=== PATIENT | female | born 1960 | race Caucasian/White ===

== ENCOUNTER 2017-02-02 18:08 | Emergency (ER) | payer OTHER ==
[2017-02-02 18:28] VITALS: BP 137/86
[2017-02-02] MEDS ORDERED: Sodium Chloride 0.9% 1,000 ML IV ONE (18:49)
[2017-02-02] MEDS ORDERED: HYDROmorphone 1 MG/ML Syringe IVPUSH ONE (18:49)
[2017-02-02] MEDS ORDERED: Sodium Chloride 0.9% 10 ML Syringe FLUSH PRN (18:49)
--- NOTE | 2017-02-02 19:08 | EDM.PDOC ---
ED HPI GENERAL MEDICAL PROBLEM - General Chief Complaint: Genitourinary Problem Stated Complaint: BLOOD IN URINE,BACK PAIN Time Seen by Provider: 02/02/17 18:46 Source of Information: Reports: Patient History Limitations: Reports: No Limitations - History of Present Illness INITIAL COMMENTS - FREE TEXT/NARRATIVE: 56-year-old female presents for evaluation and treatment of left-sided flank pain. Patient reports that she developed gross hematuria yesterday morning. She states that this morning she developed severe pain. This severe pain started in her left groin and radiated to her left flank and left back. She initially thought she had a urinary tract infection. She presented to the [place] [facility]. She states that she had a UA done which showed no infection but showed red blood cells in her urine. She was told she either had a kidney stone or bladder cancer. She was instructed to take ibuprofen and pyridium. She did not have any imaging. Patient reports that she has been taking ibuprofen but is not getting any symptom relief. Current symptoms include left-sided groin and flank pain, increased urinary urgency, increased urinary frequency, dysuria and hematuria. She denies any fevers, chills, nausea or vomiting. Patient denies any history of kidney stones. Left Flank Pain Score (Numeric/FACES): 8 - Related Data Allergies Allergy/AdvReac Type Severity Reaction Status Date / Time Sulfa (Sulfonamide Allergy Hives Verified 02/02/17 18:28 Antibiotics) Home Meds: Home Meds Multivitamin W/Iron, Minerals [Compete] 1 each PO DAILY 02/02/17 [History] Nitrofurantoin Monohyd/M-Cryst [Macrobid 100 mg Capsule] 100 mg PO BID #14 capsule 02/02/17 [Rx] Omeprazole 20 mg PO BIDAC 02/02/17 [History] Propranolol [Inderal LA] 80 mg PO DAILY 02/02/17 [History] Ramipril [Altace] 5 mg PO DAILY 02/02/17 [History] Simvastatin [Zocor] 10 mg PO BEDTIME 02/02/17 [History] Tamsulosin [Flomax] 0.4 mg PO PCBREAKFAST #14 cap.er 02/02/17 [Rx] Venlafaxine [Effexor XR 24 Hr] 75 mg PO DAILY 02/02/17 [History] Venlafaxine [Effexor XR] 150 mg PO BEDTIME 02/02/17 [History] Zolpidem [Ambien] 10 mg PO BEDTIME PRN 02/02/17 [History] metFORMIN [Glucophage] 500 mg PO BEDTIME 02/02/17 [History] predniSONE [Prednisone] 5 mg PO DAILY 02/02/17 [History] Past Medical History Cardiovascular History: Reports: High Cholesterol, Hypertension Gastrointestinal History: Reports: GERD Endocrine/Metabolic History: Reports: Diabetes, Type II - Past Surgical History HEENT Surgical History: Reports: Tonsillectomy GI Surgical History: Reports: Cholecystectomy Female Surgical History: Reports: Section Musculoskeletal Surgical History: Reports: Shoulder Surgery, Other (See Below) Other Musculoskeletal Surgeries/Procedures:: hand surgery Dermatological Surgical History: Reports: Plastic Surgical Reconstruction/Repair Social & Family History - Tobacco Use Smoking Status *Q: Current Every Day Smoker Years of Tobacco use: 40 Packs/Tins Daily: 1 - Caffeine Use Caffeine Use: Reports: Coffee - Recreational Drug Use Recreational Drug Use: No ED ROS GENERAL - Review of Systems Review Of Systems: See Below Constitutional: Denies: Fever, Chills GI/Abdominal: Reports: Abdominal Pain (left groin into left lower abdomen and flank). Denies: Nausea, Vomiting : Reports: Dysuria, Flank Pain (left), Frequency, Hematuria, Urgency ED EXAM, RENAL/ - Physical Exam Exam: See Below Exam Limited By: No Limitations General Appearance: Alert, WD/WN, No Apparent Distress Respiratory/Chest: No Respiratory Distress, Lungs Clear, Normal Breath Sounds Cardiovascular: Normal Peripheral Pulses, Regular Rate, Rhythm, No Murmur GI/Abdominal: Normal Bowel Sounds, Soft, Tender (left lower and upper abdomen) Back Exam: CVA Tenderness (L) Neurological: Alert, Oriented, Normal Cognition Psychiatric: Normal Affect, Normal Mood Skin Exam: Warm, Dry, Normal Color Course - Vital Signs Last Recorded V/S: Last Vital Signs Temp 37.0 C 02/02/17 18:24 Pulse 89 02/02/17 18:24 Resp 16 02/02/17 18:24 BP 137/86 02/02/17 18:24 Pulse Ox 100 02/02/17 18:24 - Orders/Labs/Meds Orders: Active Orders 24 hr Category Date Time Status Peripheral IV Care [RC] . DIRECTED Care 02/02/17 18:49 Active CULTURE URINE [RM] Stat Lab 02/02/17 19:39 Received Peripheral IV Insertion Adult [OM.PC] Routine Oth 02/02/17 18:48 Ordered Labs: Laboratory Tests 02/02/17 02/02/17 02/02/17 Range/Units 19:10 19:10 19:24 WBC 9.59 (3.98-10.04) K/mm3 RBC 4.78 (3.98-5.22) M/mm3 Hgb 14.3 (11.2-15.7) gm/L Hct 42.2 (34.1-44.9) % MCV 88.3 (79.4-94.8) fl MCH 29.9 (25.6-32.2) pg MCHC 33.9 (32.2-35.5) g/dl RDW Std Deviation 45.9 (36.4-46.3) fL Plt Count 158 L (182-369) K/mm3 MPV 12.7 H (9.4-12.3) fl Neut % (Auto) 62.9 (34.0-71.1) % Lymph % (Auto) 26.9 (19.3-51.7) % Bertie % (Auto) 8.2 (4.7-12.5) % Eos % (Auto) 1.5 (0.7-5.8) Baso % (Auto) 0.2 (0.1-1.2) % Neut # (Auto) 6.03 (1.56-6.13) K/mm3 Lymph # (Auto) 2.58 (1.18-3.74) K/mm3 Bertie # (Auto) 0.79 H (0.24-0.36) K/mm3 Eos # (Auto) 0.14 (0.04-0.36) K/mm3 Baso # (Auto) 0.02 (0.01-0.08) K/mm3 Sodium 141 (136-145) mEq/L Potassium 4.0 (3.5-5.1) mEq/L Chloride 106 (98-107) mEq/L Carbon Dioxide 24 (21-32) mEq/L Anion Gap 15.0 (5-15) BUN 18 (7-18) mg/dL Creatinine 1.3 H (0.55-1.02) mg/dL Est Cr Clr Drug Dosing 44.52 mL/min Estimated GFR (MDRD) 43 (>60) mL/min BUN/Creatinine Ratio 13.8 L (14-18) Glucose 106 (74-106) mg/dL Calcium 9.5 (8.5-10.1) mg/dL Total Bilirubin 0.5 (0.2-1.0) mg/dL AST 15 (15-37) U/L ALT 12 L (14-59) U/L Alkaline Phosphatase 114 (46-116) U/L Total Protein 8.0 (6.4-8.2) g/dl Albumin 3.9 (3.4-5.0) g/dl Globulin 4.1 gm/dL Albumin/Globulin Ratio 1.0 (1-2) Urine Color [place] H (Yellow) Urine Appearance Slt cloudy H (Clear) Urine pH 5.5 (5.0-8.0) Ur Specific [place] 1.015 (1.005-1.030) Urine Protein 1+ H (Negative) Urine Glucose (UA) Trace H (Negative) Urine Ketones Negative (Negative) Urine Occult Blood 2+ H (Negative) Urine Nitrite Positive H (Negative) Urine Bilirubin Negative (Negative) Urine Urobilinogen 2.0 H (0.2-1.0) Ur Leukocyte Esterase Negative (Negative) Urine RBC 5-10 H (0-5) /hpf Urine WBC 0-5 (0-5) /hpf Ur Epithelial Cells 0-5 (0-5) /hpf Urine Bacteria Few (FEW) /hpf Urine Mucus Few (FEW) /hpf Meds: Medications Discontinued Medications Generic Name Dose Route Start Last Admin Trade Name Vianey PRN Reason Stop Dose Admin Hydromorphone HCl 1 mg 02/02/17 18:49 02/02/17 19:20 Dilaudid IVPUSH 02/02/17 18:50 1 mg ONETIME ONE Administration Sodium Chloride 1,000 mls @ 999 mls/hr 02/02/17 18:49 02/02/17 19:32 Normal Saline IV 02/02/17 19:49 999 mls/hr ONETIME ONE Administration Ceftriaxone Sodium 2 gm/ 100 mls @ 200 mls/hr 02/02/17 20:06 02/02/17 20:16 Sodium Chloride IV 02/02/17 20:35 200 mls/hr ONETIME ONE Administration Sodium Chloride 10 ml 02/02/17 18:49 02/02/17 19:23 Saline Flush FLUSH 10 ml ASDIRECTED PRN Administration Keep Vein Open - Radiology Interpretation Free Text/Narrative:: CT of the abdomen and pelvis impression per Dr. Cole: 1. 4mm obstruting stone within the distal left ureter located approximately 2 cm proximal to the UPJ. CT Results Date: 02/02/17 - Re-Assessments/Exams Free Text/Narrative Re-Assessment/Exam: 02/02/17 20:01 UA returned with 1+ protein, trace glucose, 2+ blood and + nitrites. Negative leuks. Few bacteria see on microscopy. Urine sent for culture. I discussed the CT and the UA results with the patient. I will start some antibiotics here for her in the ER. She was warned that if her symptoms change or worsen she is to return to the ER immediately. 02/02/17 21:11 CBC has a normal WBC at 9.59, hgb is 14.3 and plts are 158 Sodium is 141, potassium is 4.0 and chloride is 106. Anion gap is 15.0. Creatinine is 1.3. Glucose is 106. Will discharge home with flomax, percocoet and macrobid. Discharge instructions as documented. Departure - Departure Time of Disposition: 21:11 Disposition: Home, Self-Care 01 Condition: fair Clinical Impression: UTI, Urinary tract infectious disease, Kidney stone - Discharge Information Prescriptions: Nitrofurantoin Monohyd/M-Cryst [Macrobid 100 mg Capsule] 100 mg PO BID #14 capsule Tamsulosin [Flomax] 0.4 mg PO PCBREAKFAST #14 cap.er Instructions: Kidney Stones, [id number], Urinary Tract Infection, Adult, Easy -to-Read Referrals: Gayle Mendoza MD [Primary Care Provider] - Forms: ED Department Discharge Additional Instructions: Rx for Percocet 1-2 tabs every 4-6 hours as needed for severe pain #20 given through instymeds take the macrobid bid x 7 days. You may start this medication tomorrow. Take flomax 1 tab PO daily. Take this medication in the morning. You may start this medication tomorrow. Follow-up with your PCP Sunday or Sunday this week for an ER follow-up and recheck. Make sure you're drinking plenty of fluids. Please return to the ER if your symptoms change or worsen. - My Orders Last 24 Hours: My Active Orders 02/02/17 18:48 Peripheral IV Insertion Adult [OM.PC] Routine 02/02/17 18:49 Peripheral IV Care [RC] . DIRECTED 02/02/17 19:39 CULTURE URINE [RM] Stat - Assessment/Plan Last 24 Hours: My Active Orders 02/02/17 18:48 Peripheral IV Insertion Adult [OM.PC] Routine 02/02/17 18:49 Peripheral IV Care [RC] . DIRECTED 02/02/17 19:39 CULTURE URINE [RM] Stat
--- NOTE | 2017-02-02 19:49 | CT ---
CT abdomen and pelvis Technique: Multiple axial sections were obtained from above the kidneys inferiorly through the pubic symphysis. Intravenous and oral contrast not utilized. Study has been performed as a ureteral stone protocol. Findings: Mild inflammatory change is noted around the left kidney. Left ureter is mildly prominent. Both these findings are caused by an obstructing stone within the distal left ureter measuring about 4 mm. Stone occurs approximately 2 cm proximal to the UPJ. No abnormal calcifications are seen within the left kidney. Minimal nonobstructing stone measuring about 1 mm seen within the right kidney. No right-sided ureteral calculi are seen. Visualized portions of the noncontrast liver and spleen appear within normal limits. Surgical clips are seen from prior cholecystectomy. Pancreas is within normal limits. Aorta shows atherosclerotic change without aneurysmal dilatation. Slight areas of ectasia are incidentally noted within the aorta. No retroperitoneal adenopathy or mesenteric abnormalities are seen. No pelvic mass or adenopathy is seen. No free fluid is seen. No bowel dilatation is seen. Appendix not visualized. Bone window settings were reviewed which shows vacuum disc phenomenon within the L4-L5 and L5-S1 discs. Unilateral spondylolytic defect is noted on the left side at L4-L5. Degenerative apophyseal change is seen from L3-L4 through L5-S1. Impression: 1. 4 mm obstructing stone within the distal left ureter located approximately 2 cm proximal to the UPJ. This obstructing stone causes mild inflammatory change around the left kidney as well as mildly prominent left ureter. 2. Other incidental findings as described above. Diagnostic code #3
[2017-02-02] MEDS ORDERED: cefTRIAXone 2 GM in Sodium Chloride 0.9% 100 ML IV ONE (20:06)
== END 2017-02-02 21:33 | disposition home or self-care (01) ==
LOC: JD.ED 18:08
DX: N20.2 Calculus of kidney with calculus of ureter (principal); N39.0 Urinary tract infection, site not specified; E78.00 Pure hypercholesterolemia, unspecified; I10 Essential (primary) hypertension; K21.9 Gastro-esophageal reflux disease without esophagitis; E11.9 Type 2 diabetes mellitus without complications; F17.210 Nicotine dependence, cigarettes, uncomplicated; Z90.49 Acquired absence of other specified parts of digestive tract; Z88.2 Allergy status to sulfonamides; Z79.899 Other long term (current) drug therapy; Z98.890 Other specified postprocedural states
CPT/HCPCS: 36415; 74176; 80053; 81001; 85025; 87086; 96361; 96365; 96375; 99284; J0696; J1170; J7030; J7040; J7050

== ENCOUNTER 2017-06-26 17:25 | Emergency (ER) | payer OTHER ==
[2017-06-26 18:02] VITALS: BP 162/137
[2017-06-26] MEDS ORDERED: Lidocaine 1% 10 ML MDV INJECT ONE (19:13)
--- NOTE | 2017-06-26 19:17 | EDM.PDOC ---
ED HPI GENERAL MEDICAL PROBLEM - General Chief Complaint: ENT Problem Stated Complaint: ABCESS INSIDE L CHEEK Time Seen by Provider: 06/26/17 18:43 Source of Information: Reports: Patient History Limitations: Reports: No Limitations - History of Present Illness INITIAL COMMENTS - FREE TEXT/NARRATIVE: Patient is a 56-year-old female who presents ED complaining of an abscess to the inner aspect of the left cheek. States noted a wound to her left inner cheek upon awaking up this past Sunday. She thought maybe just related to biting her cheek. Over the course of the weekend and the first part of this week abscess has increased in size with worsening pain. She has no history of MRSA. Wound is not draining. She has no fever, nausea vomiting, or any tooth pain. Left Upper Oral/Mouth Pain Score (Numeric/FACES): 7 - Related Data Allergies Allergy/AdvReac Type Severity Reaction Status Date / Time Sulfa (Sulfonamide Allergy Hives Verified 02/02/17 18:28 Antibiotics) Home Meds: Home Meds Multivitamin W/Iron, Minerals [Compete] 1 each PO DAILY 02/02/17 [History] Nitrofurantoin Monohyd/M-Cryst [Macrobid 100 mg Capsule] 100 mg PO BID #14 capsule 02/02/17 [Rx] Omeprazole 20 mg PO BIDAC 02/02/17 [History] Propranolol [Inderal LA] 80 mg PO DAILY 02/02/17 [History] Ramipril [Altace] 5 mg PO DAILY 02/02/17 [History] Simvastatin [Zocor] 10 mg PO BEDTIME 02/02/17 [History] Tamsulosin [Flomax] 0.4 mg PO PCBREAKFAST #14 cap.er 02/02/17 [Rx] Venlafaxine [Effexor XR 24 Hr] 75 mg PO DAILY 02/02/17 [History] Venlafaxine [Effexor XR] 150 mg PO BEDTIME 02/02/17 [History] Zolpidem [Ambien] 10 mg PO BEDTIME PRN 02/02/17 [History] metFORMIN [Glucophage] 500 mg PO BEDTIME 02/02/17 [History] predniSONE [Prednisone] 5 mg PO DAILY 02/02/17 [History] Doxycycline [Vibramycin] 100 mg PO Q12HR #14 cap 10/17/17 [Rx] Past Medical History Cardiovascular History: Reports: High Cholesterol, Hypertension Gastrointestinal History: Reports: GERD Genitourinary History: Reports: Renal Calculus, UTI, Recurrent Endocrine/Metabolic History: Reports: Diabetes, Type II - Past Surgical History HEENT Surgical History: Reports: Tonsillectomy GI Surgical History: Reports: Cholecystectomy Female Surgical History: Reports: Section, Tubal Ligation Musculoskeletal Surgical History: Reports: Shoulder Surgery, Other (See Below) Other Musculoskeletal Surgeries/Procedures:: hand surgery Dermatological Surgical History: Reports: Plastic Surgical Reconstruction/Repair Social & Family History - Family History Family Medical History: Noncontributory - Tobacco Use Smoking Status *Q: Current Every Day Smoker Years of Tobacco use: 40 Packs/Tins Daily: 1 - Caffeine Use Caffeine Use: Reports: Coffee - Recreational Drug Use Recreational Drug Use: No ED ROS ENT - Review of Systems Review Of Systems: ROS reveals no pertinent complaints other than HPI. ED EXAM, ENT - Physical Exam Exam: See Below Exam Limited By: No Limitations General Appearance: Alert, WD/WN, No Apparent Distress Ears: Hearing Grossly Normal Nose: Normal Inspection Mouth/Throat: Other (Small abscess noted to the bucca mucosa proximal to the left upper lip noted with palpation. Site is indurated with questionable small area of fluctuance present. Draining noted. Mild erythema.) Neck: Normal Inspection, Supple Respiratory/Chest: No Respiratory Distress, Lungs Clear, Normal Breath Sounds, No Accessory Muscle Use Cardiovascular: Normal Peripheral Pulses, Regular Rate, Rhythm Neurological: Alert, Oriented, CN II-XII Intact, Normal Cognition, No Motor/ Sensory Deficits Psychiatric: Normal Affect, Normal Mood Skin: Warm, Dry, Intact, Normal Color Course - Vital Signs Last Recorded V/S: Last Vital Signs Temp 96.8 F 06/26/17 17:59 Pulse 120 H 06/26/17 17:59 Resp 18 06/26/17 17:59 BP 162/137 H 06/26/17 17:59 Pulse Ox 100 06/26/17 17:59 - Orders/Labs/Meds Meds: Medications Discontinued Medications Generic Name Dose Route Start Last Admin Trade Name Freq PRN Reason Stop Dose Admin Lidocaine HCl 10 ml 06/26/17 19:13 06/26/17 19:42 Xylocaine 1% INJECT 06/26/17 19:14 10 ml ONETIME ONE Administration - Re-Assessments/Exams Free Text/Narrative Re-Assessment/Exam: Ordered lidocaine 1%. Will attempt to I&D site to see if any pus is present. 1954 Abscess to the left cheek was anesthetized with 1% lidocaine. Utilizing an 18-gauge needle was able to aspirate some pus. Upon retracting the needle copious amounts of pus flowed from puncture site. Bleeding was minimal. No complications noted. Will discharge patient home with instructions as documented. Departure - Departure Time of Disposition: 20:03 Disposition: Home, Self-Care 01 Condition: Good Clinical Impression: Abscess of buccal cavity - Discharge Information Prescriptions: Doxycycline [Vibramycin] 100 mg PO Q12HR #14 cap Referrals: Gayle Mendoza MD [Primary Care Provider] - Forms: ED Department Discharge, ED Return to Work/School Form Additional Instructions: Rince mouth with warm salt water as needed throughout the day if draining present. Take doxycycline 100 mg twice a day for the next 7 days. Follow-up with PCP as needed in next week if symptoms do not improve. Return to the ED for any worsening symptoms.
== END 2017-06-26 20:33 | disposition home or self-care (01) ==
LOC: JD.ED 17:25
DX: K12.2 Cellulitis and abscess of mouth (principal); I10 Essential (primary) hypertension; E78.00 Pure hypercholesterolemia, unspecified; K21.9 Gastro-esophageal reflux disease without esophagitis; E11.9 Type 2 diabetes mellitus without complications; F17.210 Nicotine dependence, cigarettes, uncomplicated; Z87.442 Personal history of urinary calculi; Z90.49 Acquired absence of other specified parts of digestive tract; Z98.890 Other specified postprocedural states; Z98.51 Tubal ligation status; Z79.84 Long term (current) use of oral hypoglycemic drugs; Z79.899 Other long term (current) drug therapy; Z88.2 Allergy status to sulfonamides
CPT/HCPCS: 10160; 99282-25; 99283-25

== ENCOUNTER 2018-04-02 13:55 | Emergency (ER) | payer MEDICAID, OTHER ==
[2018-04-02 14:05] VITALS: BP 111/76
--- NOTE | 2018-04-02 14:49 | EDM.PDOC ---
<Jamie Snow - Last Filed: 04/02/18 14:39> ED HPI GENERAL MEDICAL PROBLEM - General Chief Complaint: Upper Extremity Injury/Pain Stated Complaint: RT WRIST INJURY Time Seen by Provider: 04/02/18 14:25 Source of Information: Reports: Patient History Limitations: Reports: No Limitations - History of Present Illness INITIAL COMMENTS - FREE TEXT/NARRATIVE: Patient is a 57-year-old female who presents to the ED with right wrist pain. Last evening she was picking up her grandson and twisted her wrist wrong. She reports hearing a pop when it happened. She rates the pain 4/10 and cramp-like when sitting still. When she moves her wrist, she describes shooting pain to her right hand 4th and 5th fingers and the along the ulnar nerve along her forearm. Reports pain when palpating the distal ulna. No obvious joint deformity or swelling. She has not taken anything for the pain. She did apply ice to site last night and this morning. She has had nerve and muscle reconstruction surgery to the right arm one year ago after being bit by a dog. Does report sensory and motor issues to the right middle finger. Right Wrist Pain Score (Numeric/FACES): 5 - Related Data Allergies Allergy/AdvReac Type Severity Reaction Status Date / Time codeine Allergy Headache Verified 04/02/18 14:05 Sulfa (Sulfonamide Allergy Hives Verified 04/02/18 14:05 Antibiotics) Home Meds: Home Meds Multivitamin W/Iron, Minerals [Compete] 1 each PO DAILY 02/02/17 [History] Nitrofurantoin Monohyd/M-Cryst [Macrobid 100 mg Capsule] 100 mg PO BID #14 capsule 02/02/17 [Rx] Omeprazole 20 mg PO BIDAC 02/02/17 [History] Propranolol [Inderal LA] 80 mg PO DAILY 02/02/17 [History] Ramipril [Altace] 5 mg PO DAILY 02/02/17 [History] Simvastatin [Zocor] 10 mg PO BEDTIME 02/02/17 [History] Tamsulosin [Flomax] 0.4 mg PO PCBREAKFAST #14 cap.er 02/02/17 [Rx] Venlafaxine [Effexor XR 24 Hr] 75 mg PO DAILY 02/02/17 [History] Venlafaxine [Effexor XR] 150 mg PO BEDTIME 02/02/17 [History] Zolpidem [Ambien] 10 mg PO BEDTIME PRN 02/02/17 [History] metFORMIN [Glucophage] 500 mg PO BEDTIME 02/02/17 [History] predniSONE [Prednisone] 5 mg PO DAILY 02/02/17 [History] Doxycycline [Vibramycin] 100 mg PO Q12HR #14 cap 06/26/17 [Rx] Past Medical History Cardiovascular History: Reports: High Cholesterol, Hypertension Gastrointestinal History: Reports: GERD Genitourinary History: Reports: Renal Calculus, UTI, Recurrent Endocrine/Metabolic History: Reports: Diabetes, Type II - Past Surgical History HEENT Surgical History: Reports: Tonsillectomy GI Surgical History: Reports: Cholecystectomy Female Surgical History: Reports: Section, Tubal Ligation Musculoskeletal Surgical History: Reports: Shoulder Surgery, Other (See Below) Other Musculoskeletal Surgeries/Procedures:: hand surgery Dermatological Surgical History: Reports: Plastic Surgical Reconstruction/Repair Social & Family History - Family History Family Medical History: Noncontributory - Tobacco Use Smoking Status *Q: Current Every Day Smoker Years of Tobacco use: 40 Packs/Tins Daily: 0.2 - Caffeine Use Caffeine Use: Reports: Coffee - Recreational Drug Use Recreational Drug Use: No Review of Systems - Review of Systems Musculoskeletal: Reports: Joint Pain (right hand, distal ulnar pain ), Muscle Pain (located along the right ulnar nerve). Denies: Joint Swelling ED EXAM, GENERAL - Physical Exam Exam Limited By: No Limitations General Appearance: Alert, WD/WN, No Apparent Distress Extremities: Normal Range of Motion. No: Non-Tender (Distal ulnar pain upon palpation, radiates to 4th and 5th fingers. ), Joint Swelling, Limited Range of Motion Course - Vital Signs Last Recorded V/S: Last Vital Signs Temp 96 F 04/02/18 14:01 Pulse 120 H 04/02/18 14:01 Resp 18 04/02/18 14:01 BP 111/76 04/02/18 14:01 Pulse Ox 95 04/02/18 14:01 Departure - Departure Disposition: Home, Self-Care 01 Clinical Impression: Strain of wrist, right - Discharge Information Instructions: Wrist Sprain, Adult Referrals: Gayle Mendoza MD [Primary Care Provider] - Forms: ED Department Discharge Additional Instructions: Ice, Tylenol Motrin as needed for pain. you may wear your wrist splint needed for additional discomfort. Recommend ROM as tolerated. If you continue to have pain beyond 1-2 weeks recommend follow-up with orthopedics. Please return to the ER if your symptoms change or worsen. <RosemariejenniferbjChelsy suero - Last Filed: 04/05/18 07:11> ED HPI GENERAL MEDICAL PROBLEM - History of Present Illness INITIAL COMMENTS - FREE TEXT/NARRATIVE: I have seen the patient and agree with the HPI as documented by JULIEN Casanova Review of Systems - Review of Systems Review Of Systems: See Below Neurological: Denies: Numbness, Tingling ED EXAM, GENERAL - Physical Exam Exam: See Below Cardiovascular: Normal Peripheral Pulses Peripheral Pulses: 2+: Radial (R) Extremities: Other (tendernes to palpation to the right distal ulna) Neurological: Alert, Oriented, Normal Cognition Psychiatric: Normal Affect, Normal Mood Skin Exam: Warm, Dry, Normal Color. No: Ecchymosis, Erythema Course - Radiology Interpretation Free Text/Narrative:: xray of the right wrist shows no acute fractures or dislocations. - Re-Assessments/Exams Free Text/Narrative Re-Assessment/Exam: 04/02/18 12:18 I have seen the patient and agree with the HPI, ROS and PE as documented by JULIEN Casanova. Patient was slightly tender on palpation to the right distal ulna. I educated her this is likely a strain but given her history of problems with a dog bite she would like to go ahead and get an xray. I reviewed these results with her. Will discharge at this time. Discharge instructions as documented. Departure - Departure Time of Disposition: 15:26 Condition: Good - Discharge Information *PRESCRIPTION DRUG MONITORING PROGRAM REVIEWED*: No *COPY OF PRESCRIPTION DRUG MONITORING REPORT IN PATIENT MARILYNN: No
--- NOTE | 2018-04-02 15:27 | CR ---
Right wrist: Four views of the right wrist were obtained. Comparison: No prior study. Previous resection of the trapezium bone. Osteopenia is seen. No acute fracture or other bony abnormality is identified. Impression: 1. Previous resection of the trapezium bone. 2. Nothing acute is seen on right wrist exam. Diagnostic code #2
== END 2018-04-02 15:41 | disposition home or self-care (01) ==
LOC: JD.ED 13:55
DX: S66.911A Strain of unspecified muscle, fascia and tendon at wrist and hand level, right hand, initial encounter (principal); I10 Essential (primary) hypertension; E11.9 Type 2 diabetes mellitus without complications; F17.210 Nicotine dependence, cigarettes, uncomplicated; Z88.2 Allergy status to sulfonamides; Z88.5 Allergy status to narcotic agent; Z79.899 Other long term (current) drug therapy; X50.1XXA Overexertion from prolonged static or awkward postures, initial encounter
CPT/HCPCS: 73110-26-RT; 73110-RT; 99283

== ENCOUNTER 2020-05-21 08:13 | Emergency (ER) | payer SELFPAY ==
[2020-05-21 08:24] VITALS: BP 149/85; PULSE 80
[2020-05-21] MEDS ORDERED: Ketorolac 60 MG/2 ML SDV IM ONE (08:33)
[2020-05-21] MEDS ORDERED: HYDROmorphone 1 MG/ML Syringe IM ONE (08:33)
--- NOTE | 2020-05-21 08:43 | EDM.PDOC ---
ED HPI GENERAL MEDICAL PROBLEM - General Chief Complaint: Lower Extremity Injury/Pain Stated Complaint: R HIP PAIN Time Seen by Provider: 05/21/20 08:29 Source of Information: Reports: Patient History Limitations: Reports: No Limitations - History of Present Illness INITIAL COMMENTS - FREE TEXT/NARRATIVE: The patient presents with right sided hip pain. This started about 3 weeks ago. She does not recall any injury. She has constant pain and that is worse by movement. She now has some right lower back pain. She has no numbness or weakness in her legs. She has no fever, chills, cough, congestion, runny nose, chest pain, shortness of breath, abdominal pain, nausea or vomiting. Onset: Gradual Duration: Week(s): (3) Quality: Reports: Sharp Severity: Moderate Improves with: Reports: Immobilization Worsens with: Reports: Movement Context: Denies: Trauma Associated Symptoms: Reports: No Other Symptoms Right Hip Pain Score (Numeric/FACES): 3 - Related Data Allergies Allergy/AdvReac Type Severity Reaction Status Date / Time codeine Allergy Headache Verified 04/02/18 14:05 Sulfa (Sulfonamide Allergy Hives Verified 04/02/18 14:05 Antibiotics) Home Meds: Home Meds Omeprazole 20 mg PO BIDAC 02/02/17 [History] Propranolol [Inderal LA] 80 mg PO DAILY 02/02/17 [History] Ramipril [Altace] 5 mg PO DAILY 02/02/17 [History] Simvastatin [Zocor] 10 mg PO BEDTIME 02/02/17 [History] Venlafaxine [Effexor XR 24 Hr] 75 mg PO DAILY 02/02/17 [History] Venlafaxine [Effexor XR] 150 mg PO BEDTIME 02/02/17 [History] Zolpidem [Ambien] 10 mg PO BEDTIME PRN 02/02/17 [History] metFORMIN [Glucophage] 1,000 mg PO BID 02/02/17 [History] predniSONE [Prednisone] 5 mg PO DAILY 02/02/17 [History] Azithromycin 500 mg PO DAILY #3 tablet 04/22/19 [Rx] Hydrocodone/Acetaminophen [Hydrocodone-Acetamin 5-325 mg] 1 - 2 each PO Q6HR PRN #10 tablet 04/22/19 [Rx] Multivitamin [Multivitamins] 1 cap PO DAILY 04/22/19 [History] Ondansetron [Zofran ODT] 4 mg PO Q6H PRN #20 tab.dis 04/22/19 [Rx] glipiZIDE [Glucotrol XL] 5 mg PO DAILY 04/22/19 [History] Hydrocodone/Acetaminophen [Hydrocodone-Acetamin 5-325 mg] 1 - 2 each PO Q6HR PRN #20 tablet 05/21/20 [Rx] Past Medical History Cardiovascular History: Reports: High Cholesterol, Hypertension Gastrointestinal History: Reports: GERD Genitourinary History: Reports: Renal Calculus, UTI, Recurrent Endocrine/Metabolic History: Reports: Diabetes, Type II - Past Surgical History HEENT Surgical History: Reports: Tonsillectomy GI Surgical History: Reports: Cholecystectomy Female Surgical History: Reports: Section, Tubal Ligation Musculoskeletal Surgical History: Reports: Shoulder Surgery, Other (See Below) Other Musculoskeletal Surgeries/Procedures:: hand surgery Dermatological Surgical History: Reports: Plastic Surgical Reconstruction/Repair Social & Family History - Family History Family Medical History: Noncontributory - Tobacco Use Smoking Status *Q: Current Every Day Smoker Years of Tobacco use: 40 Packs/Tins Daily: 0.7 - Caffeine Use Caffeine Use: Reports: Coffee, Soda - Recreational Drug Use Recreational Drug Use: No Review of Systems - Review of Systems Review Of Systems: See Below Constitutional: Reports: No Symptoms Eyes: Reports: No Symptoms Ears: Reports: No Symptoms Nose: Reports: No Symptoms Mouth/Throat: Reports: No Symptoms Respiratory: Reports: No Symptoms Cardiovascular: Reports: No Symptoms GI/Abdominal: Reports: No Symptoms Genitourinary: Reports: No Symptoms Musculoskeletal: Reports: Other (Pain to the right hip and right low back) ED EXAM, GENERAL - Physical Exam Exam: See Below Exam Limited By: No Limitations General Appearance: Alert, No Apparent Distress Ears: Normal External Exam Nose: Normal Inspection Head: Atraumatic, Normocephalic Neck: Normal Inspection Respiratory/Chest: No Respiratory Distress, Lungs Clear, Normal Breath Sounds Extremities: Other (Pain upon palpation to the right hip and pain with motion. Good sensation and pulses distally.) Course - Vital Signs Last Recorded V/S: Last Vital Signs Temp 96.8 F L 05/21/20 08:20 Pulse 80 05/21/20 08:20 Resp 18 09/11/20 08:20 BP 149/85 H 05/21/20 08:20 Pulse Ox 99 05/21/20 08:20 - Orders/Labs/Meds Meds: Medications Discontinued Medications Generic Name Dose Route Start Last Admin Trade Name Vianey PRN Reason Stop Dose Admin Hydromorphone HCl 1 mg 05/21/20 08:33 05/21/20 08:53 Dilaudid IM 05/21/20 08:34 1 mg ONETIME ONE Administration Ketorolac Tromethamine 60 mg 05/21/20 08:33 05/21/20 08:54 Toradol IM 05/21/20 08:34 60 mg ONETIME ONE Administration - Re-Assessments/Exams Free Text/Narrative Re-Assessment/Exam: 05/21/20 08:45 I ordered toradol 60mg IM, dilaudid 1mg IM and an x-ray. 05/21/20 09:06 Her x-ray shows some mild joint space narrowing. I will get her on something for pain and an antiinflammatory. I will have her follow up with Dr Jordan and PT. Departure - Departure Time of Disposition: 09:10 Disposition: Home, Self-Care 01 Condition: Good Clinical Impression: Right hip pain - Discharge Information *PRESCRIPTION DRUG MONITORING PROGRAM REVIEWED*: No *COPY OF PRESCRIPTION DRUG MONITORING REPORT IN PATIENT MARILYNN: No Prescriptions: Hydrocodone/Acetaminophen [Hydrocodone-Acetamin 5-325 mg] 1 - 2 each PO Q6HR PRN #20 tablet PRN Reason: Pain Referrals: Gayle Mendoza MD [Primary Care Provider] - Brian Jordan MD [Physician] - 1 Week Forms: ED Department Discharge, ED Return to Work/School Form Additional Instructions: Take ibuprofen or aleve for pain. If that does not help, try the hydrocodone. Use ice or heat on your hip, which ever feels better. Follow up with physical therapy and Dr Jordan. Sepsis Event Note (ED) - Evaluation Sepsis Screening Result: No Definite Risk - Focused Exam Vital Signs: Vital Signs Temp Pulse Resp BP Pulse Ox 05/21/20 08:20 96.8 F L 80 18 149/85 H 99
--- NOTE | 2020-05-21 08:54 | CR ---
Pelvis and right hip: AP view of the pelvis was obtained as well as AP and frog-leg lateral views of the right hip. Slight joint space narrowing believed to be present within both superior hips. Detached bony density is noted off the superior left hip which is well corticated and believed to be old. No acute fracture is seen. Sacroiliac joints appear within normal limits. Impression: 1. Slight joint space narrowing within both superior hips. 2. Other findings believed to be incidental. Diagnostic code #2 This report was dictated in MDT
== END 2020-05-21 09:20 | disposition home or self-care (01) ==
LOC: JD.ED 08:13
DX: M25.551 Pain in right hip (principal); F17.210 Nicotine dependence, cigarettes, uncomplicated; E78.00 Pure hypercholesterolemia, unspecified; I10 Essential (primary) hypertension; K21.9 Gastro-esophageal reflux disease without esophagitis; E11.9 Type 2 diabetes mellitus without complications; Z79.84 Long term (current) use of oral hypoglycemic drugs; Z79.899 Other long term (current) drug therapy; Z88.5 Allergy status to narcotic agent; Z88.2 Allergy status to sulfonamides
CPT/HCPCS: 73502; 96372; 99283; J1170; J1885

== ENCOUNTER 2020-07-10 08:17 | Emergency (ER) | payer SELFPAY ==
[2020-07-10 08:32] VITALS: BP 172/93; PULSE 97
[2020-07-10] MEDS ORDERED: Acetaminophen/oxyCODONE 325-5 MG Tab PO ONE (08:41)
--- NOTE | 2020-07-10 08:41 | EDM.PDOC ---
ED HPI GENERAL MEDICAL PROBLEM - General Chief Complaint: Lower Extremity Injury/Pain Stated Complaint: RT HIP PAIN Time Seen by Provider: 07/10/20 08:31 Source of Information: Reports: Patient History Limitations: Reports: No Limitations - History of Present Illness INITIAL COMMENTS - FREE TEXT/NARRATIVE: 59-year-old female presents to the ED with markedly increased pain in her right buttock hip area which is rating down the posterior aspect of her right leg to her knee. Patient has been having similar type problems off and on for the last 6 to 8 weeks. She knows she has degenerative arthritic change in her lumbar spine and has received previous steroid injections presumably into the facet joints. She states however this pain has been coming and going and seem to set tle down after visit in the ED in early May. X-ray done at that time revealed mild arthritic change in both hips on the superior aspect of the acetabulum. Pain woke her up this morning and she is walking with a very bad limp. Denies any trauma or slip or fall. Still has good control of bowel and bladder function. Of note she is a type II diabetic with sugars usually below 150 ie. well controlled. She did try to go to work this morning but is unable to essentially function in the workplace due to the severity of the pain and the feeling like her right hip is going to give out going to cause her to fall. Patient has taken 600 mg of Motrin this morning with no relief. Onset: Other (Has been having right buttock hip pain off and on for the last 6 to 8 weeks. Became severe overnight.) Duration: Chronic, Getting Worse, Waxing/Waning Location: Reports: Lower Extremity, Right (Pain is primarily in the right buttock and radiates down the posterior lateral aspect of her right thigh in the L5 nerve root distribution) Quality: Reports: Ache, Throbbing Severity: Moderate Improves with: Reports: Rest (Down to 10.) Worsens with: Reports: Other (Is made worse by walking and particularly by sitting. Found it very difficult even to drive here in her vehicle.) Context: Denies: Activity, Exercise, Lifting, Sick Contact, Trauma, Other Associated Symptoms: Denies: No Other Symptoms, Confusion, Chest Pain, Cough, cough w sputum, Diaphoresis, Fever/Chills, Headaches, Loss of Appetite, Malaise, Nausea/Vomiting, Seizure, Shortness of Breath, Syncope, Weakness Treatments [employer]: Reports: NSAIDS Right Hip Pain Score (Numeric/FACES): 8 - Related Data Allergies Allergy/AdvReac Type Severity Reaction Status Date / Time codeine Allergy Headache Verified 07/10/20 08:30 Sulfa (Sulfonamide Allergy Hives Verified 07/10/20 08:30 Antibiotics) Home Meds: Home Meds Omeprazole 20 mg PO BIDAC 02/02/17 [History] Propranolol [Inderal LA] 80 mg PO DAILY 02/02/17 [History] Ramipril [Altace] 5 mg PO DAILY 02/02/17 [History] Simvastatin [Zocor] 10 mg PO BEDTIME 02/02/17 [History] Venlafaxine [Effexor XR 24 Hr] 75 mg PO DAILY 02/02/17 [History] Venlafaxine [Effexor XR] 150 mg PO BEDTIME 02/02/17 [History] Zolpidem [Ambien] 10 mg PO BEDTIME PRN 02/02/17 [History] metFORMIN [Glucophage] 1,000 mg PO BID 02/02/17 [History] predniSONE [Prednisone] 5 mg PO DAILY 02/02/17 [History] Azithromycin 500 mg PO DAILY #3 tablet 04/22/19 [Rx] Hydrocodone/Acetaminophen [Hydrocodone-Acetamin 5-325 mg] 1 - 2 each PO Q6HR PRN #10 tablet 04/22/19 [Rx] Multivitamin [Multivitamins] 1 cap PO DAILY 04/22/19 [History] Ondansetron [Zofran ODT] 4 mg PO Q6H PRN #20 tab.dis 04/22/19 [Rx] glipiZIDE [Glucotrol XL] 5 mg PO DAILY 04/22/19 [History] Hydrocodone/Acetaminophen [Hydrocodone-Acetamin 5-325 mg] 1 - 2 each PO Q6HR PRN #20 tablet 05/21/20 [Rx] Hydrocodone/Acetaminophen [Hydrocodone-Acetamin 5-325 mg] 1 - 2 each PO Q6HR PRN #20 tablet 05/21/20 [Rx] Meloxicam 15 mg PO DAILY #12 tablet 07/10/20 [Rx] oxyCODONE HCl/Acetaminophen [Percocet 5-325 mg Tablet] 1 - 2 each PO Q4H PRN #28 tablet 07/10/20 [Rx] predniSONE [Prednisone] 20 mg PO ASDIRECTED #18 tablet 07/10/20 [Rx] Past Medical History Cardiovascular History: Reports: High Cholesterol, Hypertension Gastrointestinal History: Reports: GERD Genitourinary History: Reports: Renal Calculus, UTI, Recurrent Endocrine/Metabolic History: Reports: Diabetes, Type II, Obesity/BMI 30+ - Past Surgical History HEENT Surgical History: Reports: Tonsillectomy GI Surgical History: Reports: Cholecystectomy Female Surgical History: Reports: Section, Tubal Ligation Musculoskeletal Surgical History: Reports: Shoulder Surgery, Other (See Below) Other Musculoskeletal Surgeries/Procedures:: hand surgery Dermatological Surgical History: Reports: Plastic Surgical Reconstruction/Repair Social & Family History - Family History Family Medical History: Noncontributory - Caffeine Use Caffeine Use: Reports: Coffee, Soda - Living Situation & Occupation Living situation: Reports: Occupation: Employed Review of Systems - Review of Systems Review Of Systems: See Below Constitutional: Reports: No Symptoms Eyes: Reports: No Symptoms Ears: Reports: No Symptoms Nose: Reports: No Symptoms Mouth/Throat: Reports: No Symptoms Respiratory: Reports: No Symptoms Cardiovascular: Reports: Other (Struve hypertension.) GI/Abdominal: Reports: No Symptoms Genitourinary: Reports: Other (Urinary frequency.) Musculoskeletal: Reports: Back Pain (Chronic low back pain. Known to have degenerative arthritis of the lumbar spine), Leg Pain (Presents with right buttock and posterior lateral thigh pain to the knee.) Skin: Reports: No Symptoms Neurological: Reports: No Symptoms Psychiatric: Reports: No Symptoms ED EXAM, GENERAL - Physical Exam Exam: See Below Exam Limited By: No Limitations General Appearance: Alert, WD/WN, Mild Distress, Other (Temperature is 36.4. Heart rate 97 sinus respiratory is 20 O2 sats are 100% on room air. BP is slightly elevated 1 7293.) Eye Exam: Bilateral Eye: Normal Inspection, PERRL Respiratory/Chest: No Respiratory Distress, Lungs Clear, Normal Breath Sounds, No Accessory Muscle Use Cardiovascular: Normal Peripheral Pulses, Regular Rate, Rhythm, No Edema, No Gallop, No Murmur, No Rub Peripheral Pulses: 2+: Posterior Tibial (L), Posterior Tibial (R), Dorsalis Pedis (L), Dorsalis Pedis (R) GI/Abdominal: Normal Bowel Sounds, Soft, Non-Tender, No Organomegaly, Pelvis Stable, Other Back Exam: Other (She does have diffuse right-sided paraspinal muscle spasm from thoracic 10 to lumbar 5. Points of maximal tenderness over the L3-L4 and L4-L5 facet joints right side. There is also significant pain on palpation of the right sacroiliac joint particular the superior two thirds of the joint in comparison to the left side. Greater trochanteric bursa is minimally tender right side.) Extremities: Other (Patient does have some mild increased pain in the right hip buttock area with her right hip in full extension. However range of motion of both hips is close to normal.) Neurological: Other (Patient does have a mildly positive bowstring sign. She does have increased pain in her right buttock with straight leg raise on the right side past 60 degrees.) Psychiatric: Normal Affect, Normal Mood Skin Exam: Warm, Dry, Intact, Normal Color, No Rash Course - Vital Signs Last Recorded V/S: Last Vital Signs Temp 36.4 C 07/10/20 08:27 Pulse 97 07/10/20 08:27 Resp 20 07/10/20 08:27 BP 172/93 H 07/10/20 08:27 Pulse Ox 100 07/10/20 08:27 - Orders/Labs/Meds Meds: Medications Discontinued Medications Generic Name Dose Route Start Last Admin Trade Name Vianey PRN Reason Stop Dose Admin Oxycodone/Acetaminophen 1 tab 07/10/20 08:41 07/10/20 08:46 Percocet 325-5 Mg PO 07/10/20 08:42 1 tab ONETIME ONE Administration - Radiology Interpretation Free Text/Narrative:: 59-year-old female presents to the ED with acute on intermittent right buttock and lower back pain. She describes as pain in her right posterior hip. She was seen in early May by Dr. Casarez through the emergency department and had x-rays of both hips performed at that time. The x-ray revealed mild degenerative arthritic change in the superior aspect of both acetabulum. On e xamination today she has a combination of findings. She does have diffuse right-sided low back pain with marked tenderness of palpation of the L3-L4 and L4-L5 facet joints in comparison to the left side. Severe tenderness to palpation throughout the superior two thirds of the right sacroiliac joint. Mild tenderness on full external rotation of the right hip. Mildly positive straight leg raise as well. It appears that most of the pain is coming from the sacroiliac joint and pain has been waxing and waning with some days being very good and some days being much worse than others. Plan she will be started on meloxicam 15 mg once daily for 12 days. She will also be started on prednisone 20 mg twice daily for 6 days then 1 tab in the morning only for another 6 days. Patient usually takes 10 mg of prednisone daily. After she is done the 12-day regimen she will return to the 10 mg tablet once daily. She appreciates that this may increase her blood sugars transiently and she will keep an eye on them. Percocet tabs 5/325 mg strength 1 or 2 every 4-6 hours necessary for pain relief. Hopefully within 48 hours the anti-inflammatories are becoming effective and will reduce her pain substantially. Note given to excuse her from the workplace for the next 3 days. If pain continues she may benefit from physical therapy program. Departure - Departure Time of Disposition: 08:43 Disposition: Home, Self-Care 01 Condition: Fair Clinical Impression: Sacroiliitis - Discharge Information *PRESCRIPTION DRUG MONITORING PROGRAM REVIEWED*: Not Applicable *COPY OF PRESCRIPTION DRUG MONITORING REPORT IN PATIENT MARILYNN: Not Applicable Prescriptions: Meloxicam 15 mg PO DAILY #12 tablet oxyCODONE HCl/Acetaminophen [Percocet 5-325 mg Tablet] 1 - 2 each PO Q4H PRN #28 tablet PRN Reason: pain relief. predniSONE [Prednisone] 20 mg PO ASDIRECTED #18 tablet Referrals: Gayle Mendoza MD [Primary Care Provider] - Forms: ED Department Discharge, ED Return to Work/School Form Additional Instructions: Evaluation in the emergency room this morning due to acute worsening of right posterior buttock and hip pain. Pain is now rating down the posterior aspect of your right leg to the knee. Straight suggests intermittent right hip pain off and on for the last 6 weeks or more. Examination reveals diffuse tenderness throughout the lumbar spine particularly on the right side. Previously identified to have degenerative arthritic changes in your back. There is some suggestion on examination that you may have mild nerve root irritation in the lower back likely in the L5 nerve root. There is mild hip pain on full external rotation of the hip but otherwise the true hip joint is appears to be close to normal. There is marked inflammation and pain throughout the distribution of the right sacroiliac joint on exam. Treatment today is to start anti- inflammatory meloxicam 15 mg every morning for the next 12 days. Increase prednisone to 20 mg twice daily for the next 6 days usually with breakfast and supper and then 1 tab in the morning only for another 6 days. Percocet tabs 5/325 mg strength 1 or 2 every 4-6 hours as necessary for pain relief until the anti-inflammatories become effective. This will likely be around 36 to 48 hours. Suggest off work for the next 3 days and a note will be given to that effect. Sepsis Event Note (ED) - Evaluation Sepsis Screening Result: No Definite Risk - Focused Exam Vital Signs: Vital Signs Temp Pulse Resp BP Pulse Ox 07/10/20 08:27 36.4 C 97 20 172/93 H 100
== END 2020-07-10 09:00 | disposition home or self-care (01) ==
LOC: JD.ED 08:17
DX: M46.1 Sacroiliitis, not elsewhere classified (principal); E78.00 Pure hypercholesterolemia, unspecified; I10 Essential (primary) hypertension; K21.9 Gastro-esophageal reflux disease without esophagitis; E11.9 Type 2 diabetes mellitus without complications; E66.9 Obesity, unspecified; Z68.36 Body mass index [BMI] 36.0-36.9, adult; Z88.5 Allergy status to narcotic agent; Z88.2 Allergy status to sulfonamides; Z79.899 Other long term (current) drug therapy; Z79.84 Long term (current) use of oral hypoglycemic drugs
CPT/HCPCS: 99283; A9270

== ENCOUNTER 2020-09-16 09:52 | Emergency (ER) | payer SELFPAY ==
[2020-09-16 10:11] VITALS: BP 176/91; PULSE 107
--- NOTE | 2020-09-16 11:05 | EDM.PDOC ---
ED HPI GENERAL MEDICAL PROBLEM - General Chief Complaint: Lower Extremity Injury/Pain Stated Complaint: ANKLE INJURY Time Seen by Provider: 09/16/20 10:30 Source of Information: Reports: Patient History Limitations: Reports: No Limitations - History of Present Illness INITIAL COMMENTS - FREE TEXT/NARRATIVE: Patient presents to the emergency department with complaints of a left ankle injury. She states that she was at work on Sunday evening and there is a step down in the rc at her work. Patient states she missed taking the step down and rolled her ankle laterally. She does not recall hearing any popping snapping or cracking however she states she has had a significant amount of pain since. She is able to bear a minimal amount of weight with toe-touch only. P atient does have significant tenderness over fifth metatarsal area. Patient also has significant tenderness over the posterior edge of the lateral malleolus. CMS is positive and patient is able to wiggle her digits. 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, Cold Therapy, NSAIDS Left Feet Pain Score (Numeric/FACES): 5 - Related Data Allergies Allergy/AdvReac Type Severity Reaction Status Date / Time codeine Allergy Headache Verified 09/16/20 10:01 Sulfa (Sulfonamide Allergy Hives Verified 09/16/20 10:01 Antibiotics) Home Meds: Home Meds Omeprazole 20 mg PO BIDAC 02/02/17 [History] Propranolol [Inderal LA] 80 mg PO DAILY 02/02/17 [History] Ramipril [Altace] 5 mg PO DAILY 02/02/17 [History] Simvastatin [Zocor] 10 mg PO BEDTIME 02/02/17 [History] Venlafaxine [Effexor XR 24 Hr] 75 mg PO DAILY 02/02/17 [History] Venlafaxine [Effexor XR] 150 mg PO BEDTIME 02/02/17 [History] Zolpidem [Ambien] 10 mg PO BEDTIME PRN 02/02/17 [History] metFORMIN [Glucophage] 1,000 mg PO BID 02/02/17 [History] predniSONE [Prednisone] 10 mg PO DAILY 02/02/17 [History] Multivitamin [Multivitamins] 1 cap PO DAILY 04/22/19 [History] glipiZIDE [Glucotrol XL] 5 mg PO DAILY 04/22/19 [History] Past Medical History Cardiovascular History: Reports: High Cholesterol, Hypertension Respiratory History: Reports: None Gastrointestinal History: Reports: GERD Genitourinary History: Reports: Renal Calculus, UTI, Recurrent INSURANCE CLAIM 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 History: Reports: None Neurological History: Reports: Migraines Psychiatric History: Reports: Depression Endocrine/Metabolic History: Reports: Diabetes, Type II, Obesity/BMI 30+ Hematologic History: Reports: None Immunologic History: Reports: None Oncologic (Cancer) History: Reports: None Dermatologic History: Reports: None - Infectious Disease History Infectious Disease History: Reports: Chicken Pox, Measles, Mumps - Past Surgical History Head Surgeries/Procedures: Reports: None HEENT Surgical History: Reports: LASIK, Oral Surgery, Tonsillectomy Other HEENT Surgeries/Procedures: all teeth pulled 22 some years of age GI Surgical History: Reports: Cholecystectomy Female Surgical History: Reports: Section, Tubal Ligation Neurological Surgical History: Reports: None Musculoskeletal Surgical History: Reports: Shoulder Surgery, Other (See Below) Other Musculoskeletal Surgeries/Procedures:: hand surgery Dermatological Surgical History: Reports: Plastic Surgical Reconstruction/Repair Social & Family History - Family History Family Medical History: Unobtainable - Tobacco Use Tobacco Use Status *Q: Current Every Day Tobacco User Years of Tobacco use: 40 Packs/Tins Daily: 1 - Caffeine Use Caffeine Use: Reports: Coffee - Recreational Drug Use Recreational Drug Use: No - Living Situation & Occupation Living situation: Reports: Occupation: Employed Review of Systems - Review of Systems Review Of Systems: See Below Constitutional: Reports: No Symptoms Eyes: Reports: No Symptoms Ears: Reports: No Symptoms Nose: Reports: No Symptoms Mouth/Throat: Reports: No Symptoms Respiratory: Reports: No Symptoms Cardiovascular: Reports: No Symptoms GI/Abdominal: Reports: No Symptoms Genitourinary: Reports: No Symptoms Musculoskeletal: Reports: Foot Pain (Left), Joint Pain, Joint Swelling (Left lateral ankle), Other (Left ankle pain) Skin: Reports: No Symptoms Neurological: Reports: No Symptoms Psychiatric: Reports: No Symptoms ED EXAM, GENERAL - Physical Exam Exam: See Below Exam Limited By: No Limitations General Appearance: Alert, WD/WN, No Apparent Distress Eye Exam: Bilateral Eye: PERRL Ears: Hearing Grossly Normal Nose: Normal Inspection Throat/Mouth: Normal Voice, No Airway Compromise Head: Atraumatic, Normocephalic Neck: Normal Inspection, Supple, Non-Tender, Full Range of Motion Respiratory/Chest: No Respiratory Distress, No Accessory Muscle Use Cardiovascular: Normal Peripheral Pulses, Regular Rate, Rhythm Peripheral Pulses: 2+: Radial (L), Radial (R), Dorsalis Pedis (L), Dorsalis Pedis (R) (Female) Exam: Deferred Rectal (Female) Exam: Deferred Extremities: Pedal Edema (Left ankle), Joint Swelling (Left ankle), Limited Range of Motion (Left ankle) Neurological: Alert, Oriented, Normal Cognition Psychiatric: Normal Affect, Normal Mood Skin Exam: Warm, Dry, Intact, Normal Color, No Rash Lymphatic: No Adenopathy Course - Vital Signs Text/Narrative:: I have ordered a left ankle and foot x-ray Last Recorded V/S: Last Vital Signs Temp 96.7 F L 09/16/20 10:09 Pulse 107 H 09/16/20 10:09 Resp 20 09/16/20 10:09 BP 176/91 H 09/16/20 10:09 Pulse Ox 96 09/16/20 10:09 - Orders/Labs/Meds Orders: Active Orders 24 hr Category Date Time Status Ankle Min 3V Lt [CR] Stat Exams 09/16/20 10:37 Taken Foot 2V Lt [CR] Stat Exams 09/16/20 10:37 Taken DME for Discharge [COMM] Stat Oth 09/16/20 11:28 Ordered - Re-Assessments/Exams Free Text/Narrative Re-Assessment/Exam: 09/16/20 11:29 No acute fractures are appreciated on foot or ankle x-ray however with patient's assessment it is questionable whether or not she has a fracture. Patient will be discharged to home with a walking boot and crutches for minimal weightbearing and she should follow-up with her primary care provider in a few days if it is not getting better. 09/16/20 11:35 Departure - Departure Time of Disposition: 11:35 Disposition: Home, Self-Care 01 Condition: Good Clinical Impression: Sprain and strain of left ankle - Discharge Information Referrals: Gayle Mendoza MD [Primary Care Provider] - Forms: ED Department Discharge Additional Instructions: You were seen in the emergency department with complaints of left ankle pain that was sustained after rolling your ankle when stepping off a step at work. X-rays were completed. There is no obvious fracture on x-ray however on assessment you are exquisitely tender on the lateral portion of your ankle. You will be sent home with a walking boot and crutches. Wear the walking boot during the day it can be off at nighttime. Elevate your ankle on pillows as much as possible. Ice 20 minutes at a time. You can take Tylenol 650 mg every 4 hours as needed for the pain or ibuprofen 600 mg every 6 hours as needed for pain. Be sure to take ibuprofen with food. If your ankle is not better within a few days follow-up with your primary care provider. Should your condition worsen or change please return to the emergency department. Sepsis Event Note (ED) - Evaluation Sepsis Screening Result: No Definite Risk - Focused Exam Vital Signs: Vital Signs Temp Pulse Resp BP Pulse Ox 09/16/20 10:09 96.7 F L 107 H 20 176/91 H 96 - My Orders Last 24 Hours: My Active Orders 09/16/20 10:37 Ankle Min 3V Lt [CR] Stat Foot 2V Lt [CR] Stat 09/16/20 11:28 DME for Discharge [COMM] Stat - Assessment/Plan Last 24 Hours: My Active Orders 09/16/20 10:37 Ankle Min 3V Lt [CR] Stat Foot 2V Lt [CR] Stat 09/16/20 11:28 DME for Discharge [COMM] Stat
--- NOTE | 2020-09-17 10:46 | CR ---
Left ankle: 4 views of the left ankle were obtained. Comparison: No previous study. Plantar spur is noted. Ankle mortise is symmetric. No acute fracture, dislocation or other bony abnormality is appreciated. Impression: 1. Plantar spur. 2. Nothing acute is appreciated on left ankle study. Diagnostic code #2
--- NOTE | 2020-09-17 10:47 | CR ---
Left foot: 2 views of the left foot were obtained. Comparison: No previous study. Plantar spur is again noted. No acute fracture or other bony abnormality is appreciated. Impression: 1. Plantar spur. 2. Nothing acute is seen on 2 view left foot study. Diagnostic code #2
== END 2020-09-16 11:55 | disposition home or self-care (01) ==
LOC: JD.ED 09:52
DX: S93.402A Sprain of unspecified ligament of left ankle, initial encounter (principal); S96.912A Strain of unspecified muscle and tendon at ankle and foot level, left foot, initial encounter; E78.00 Pure hypercholesterolemia, unspecified; I10 Essential (primary) hypertension; K21.9 Gastro-esophageal reflux disease without esophagitis; F32.9 Major depressive disorder, single episode, unspecified; E11.9 Type 2 diabetes mellitus without complications; E66.9 Obesity, unspecified; F17.210 Nicotine dependence, cigarettes, uncomplicated; Z68.45 Body mass index [BMI] 70 or greater, adult; Z88.5 Allergy status to narcotic agent; Z88.2 Allergy status to sulfonamides; Z79.84 Long term (current) use of oral hypoglycemic drugs; X50.9XXA Other and unspecified overexertion or strenuous movements or postures, initial encounter; Y99.0 Civilian activity done for income or pay
CPT/HCPCS: 73610-26-LT; 73610-LT; 73620-26-LT; 73620-LT; 99282; 99283-25

== ENCOUNTER 2021-08-11 12:31 | Emergency (ER) | payer SELFPAY ==
[2021-08-11 13:25] VITALS: BP 145/54; PULSE 86
[2021-08-11] MEDS ORDERED: Sodium Chloride 0.9% 10 ML Syringe FLUSH PRN (13:25)
--- NOTE | 2021-08-11 14:17 | CR ---
Right knee: AP, lateral and sunrise patellar views of the right knee were obtained. Comparison: No prior right knee study is available. Very slight medial joint space narrowing is seen. Lateral joint space is preserved. Small osteophytes are seen off the patella. Impression: 1. Minimal degenerative change. Diagnostic code #2
--- NOTE | 2021-08-11 14:39 | EDM.PDOC ---
ED HPI GENERAL MEDICAL PROBLEM - General Chief Complaint: Lower Extremity Injury/Pain Stated Complaint: RT KNEE PAIN Time Seen by Provider: 08/11/21 14:24 Source of Information: Reports: Patient, RN Notes Reviewed History Limitations: Reports: No Limitations - History of Present Illness INITIAL COMMENTS - FREE TEXT/NARRATIVE: Patient is in a 60-year-old female presenting to the emergency department with complaints of right knee pain. She reports she has had progressively worsening pain for the last 2 weeks. It is now painful for her to walk on it and states she has difficulty sleeping due to the pain. She reports she has had intermittent knee pain off and on over the years, but nothing this extreme. She has had arthroscopic knee surgery on her left knee in the past. She denies any fever or chills. She takes prednisone 10 mg daily at baseline. Denies any known injuries to the knee. 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 She feels this is likely aggravating the pain. She reports that when she bends the knee she can feel "grinding "and that sometimes it becomes "stuck ". Right Knee Pain Score (Numeric/FACES): 10 - Related Data Allergies Allergy/AdvReac Type Severity Reaction Status Date / Time codeine Allergy Headache Verified 09/16/20 10:01 Sulfa (Sulfonamide Allergy Hives Verified 09/16/20 10:01 Antibiotics) Home Meds: Home Meds Omeprazole 20 mg PO BIDAC 02/02/17 [History] Propranolol [Inderal LA] 80 mg PO DAILY 02/02/17 [History] Ramipril [Altace] 5 mg PO DAILY 02/02/17 [History] Simvastatin [Zocor] 10 mg PO BEDTIME 02/02/17 [History] Venlafaxine [Effexor XR 24 Hr] 75 mg PO DAILY 02/02/17 [History] Venlafaxine [Effexor XR] 150 mg PO BEDTIME 02/02/17 [History] Zolpidem [Ambien] 10 mg PO BEDTIME PRN 02/02/17 [History] metFORMIN [Glucophage] 1,000 mg PO BID 02/02/17 [History] predniSONE [Prednisone] 10 mg PO DAILY 02/02/17 [History] Multivitamin [Multivitamins] 1 cap PO DAILY 04/22/19 [History] glipiZIDE [Glucotrol XL] 5 mg PO DAILY 04/22/19 [History] Hydrocodone/Acetaminophen [Hydrocodone-Acetamin 5-325 mg] 1 each PO Q4H PRN #12 tablet 08/11/21 [Rx] predniSONE [Prednisone] 20 mg PO ASDIRECTED #15 tablet 08/11/21 [Rx] Past Medical History Cardiovascular History: Reports: High Cholesterol, Hypertension Respiratory History: Reports: None Gastrointestinal History: Reports: GERD Genitourinary History: Reports: Renal Calculus, UTI, Recurrent 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 Neurological History: Reports: Migraines Psychiatric History: Reports: Depression Endocrine/Metabolic History: Reports: Diabetes, Type II, Obesity/BMI 30+ Hematologic History: Reports: None Immunologic History: Reports: None Oncologic (Cancer) History: Reports: None Dermatologic History: Reports: None - Infectious Disease History Infectious Disease History: Reports: Chicken Pox, Measles, Mumps - Past Surgical History Head Surgeries/Procedures: Reports: None HEENT Surgical History: Reports: LASIK, Oral Surgery, Tonsillectomy Other HEENT Surgeries/Procedures: all teeth pulled 22 some years of age GI Surgical History: Reports: Cholecystectomy Female Surgical History: Reports: Section, Tubal Ligation Neurological Surgical History: Reports: None Musculoskeletal Surgical History: Reports: Arthroscopic Knee, Shoulder Surgery, Other (See Below) Other Musculoskeletal Surgeries/Procedures:: hand surgery Dermatological Surgical History: Reports: Plastic Surgical Reconstruction/Repair Social & Family History - Family History Family Medical History: Unobtainable - Tobacco Use Tobacco Use Status *Q: Current Every Day Tobacco User Years of Tobacco use: 44 Packs/Tins Daily: 0.7 - Caffeine Use Caffeine Use: Reports: Coffee, Soda - Recreational Drug Use Recreational Drug Use: No - Living Situation & Occupation Living situation: Reports: Occupation: Employed Review of Systems - Review of Systems Review Of Systems: Comprehensive ROS is negative, except as noted in HPI. ED EXAM, GENERAL - Physical Exam Exam: See Below Exam Limited By: No Limitations General Appearance: Alert, WD/WN, No Apparent Distress Respiratory/Chest: No Respiratory Distress, Lungs Clear, Normal Breath Sounds, N o Accessory Muscle Use, Chest Non-Tender Cardiovascular: Normal Peripheral Pulses, Regular Rate, Rhythm, No Edema, No Gallop, No JVD, No Murmur, No Rub Extremities: Other (Mild edema to the right knee. Tenderness to palpation to the anterior aspect. No redness or warmth.) Neurological: Alert, Oriented, No Motor/Sensory Deficits Psychiatric: Normal Affect, Normal Mood Skin Exam: Warm, Dry, Intact, Normal Color, No Rash Course - Vital Signs Last Recorded V/S: Last Vital Signs Temp 97.8 F 08/11/21 13:23 Pulse 86 08/11/21 13:23 Resp 20 08/11/21 13:23 BP 145/54 H 08/11/21 13:23 Pulse Ox 100 08/11/21 13:23 - Orders/Labs/Meds Orders: Active Orders 24 hr Category Date Time Status DME for Discharge [COMM] Routine Oth 08/11/21 14:41 Ordered Peripheral IV Insertion Adult [OM.PC] Stat Oth 08/11/21 13:25 Ordered Meds: Medications Discontinued Medications Generic Name Dose Route Start Last Admin Trade Name Freq PRN Reason Stop Dose Admin Sodium Chloride 10 ml 08/11/21 13:25 Sodium Chloride 0.9% 10 Ml Syringe FLUSH ASDIRECTED PRN Keep Vein Open - Re-Assessments/Exams Free Text/Narrative Re-Assessment/Exam: Patient is a 60-year-old female presenting to the emergency department with complaints of 2-week history of progressively worsening knee pain. On exam, she does have mild swelling to the right knee. There is no redness or warmth of the area. She has tenderness to palpation to the anterior aspect of the knee. X-ray of the knee shows mild degenerative changes but no other abnormalities. Patient will be provided knee immobilizer. I will put her on tapering prednisone. Discussed that she should stop her 10 mg prednisone while taking this and then resume once the course is complete. Also some prescription for hydrocodone with Tylenol as needed for pain to help her sleep. Referral will be sent to orthopedist, Dr. Jordan. Recommend that she follow-up with him at his next available visit. Discussed return precautions. Discharge instructions as document. Departure - Departure Time of Disposition: 14:42 Disposition: Home, Self-Care 01 Condition: Good Clinical Impression: Knee pain Qualifiers: Chronicity: acute Laterality: right Qualified Code(s): M25.561 - Pain in right knee - Discharge Information *PRESCRIPTION DRUG MONITORING PROGRAM REVIEWED*: Yes *COPY OF PRESCRIPTION DRUG MONITORING REPORT IN PATIENT MARILYNN: No Prescriptions: Hydrocodone/Acetaminophen [Hydrocodone-Acetamin 5-325 mg] 1 each PO Q4H PRN #12 tablet PRN Reason: Pain predniSONE [Prednisone] 20 mg PO ASDIRECTED #15 tablet Instructions: Acute Knee Pain, Adult Referrals: Gayle Mendoza MD [Primary Care Provider] - Brian Jordan MD [Physician] - Forms: ED Department Discharge, ED Return to Work/School Form Additional Instructions: Take the prednisone as prescribed. Stop your 10 mg of prednisone while taking this and resume once treatment course is complete. Use routine Tylenol and or ibuprofen as needed for discomfort. For pain not relieved by this, a prescription for hydrocodone with Tylenol has been provided. Do not work or drive for 12 hours after taking this medication as it can be sedating. Wear knee immobilizer when up and moving around to stabilize the joint. Use the crutches and cane that you have at home as needed for mobility. Contact Dr. Jordan's office to set up follow-up visit with him at his next available appointment. Return to ER as needed. Sepsis Event Note (ED) - Focused Exam Vital Signs: Vital Signs Temp Pulse Resp BP Pulse Ox 08/11/21 13:23 97.8 F 86 20 145/54 H 100 - My Orders Last 24 Hours: My Active Orders 08/11/21 13:25 Peripheral IV Insertion Adult [OM.PC] Stat 08/11/21 14:41 DME for Discharge [COMM] Routine - Assessment/Plan Last 24 Hours: My Active Orders 08/11/21 13:25 Peripheral IV Insertion Adult [OM.PC] Stat 08/11/21 14:41 DME for Discharge [COMM] Routine
== END 2021-08-11 14:55 | disposition home or self-care (01) ==
LOC: JD.ED 12:31
DX: M25.561 Pain in right knee (principal); E11.9 Type 2 diabetes mellitus without complications; E66.9 Obesity, unspecified; K21.9 Gastro-esophageal reflux disease without esophagitis; Z68.36 Body mass index [BMI] 36.0-36.9, adult; Z88.5 Allergy status to narcotic agent; Z88.2 Allergy status to sulfonamides; Z79.899 Other long term (current) drug therapy; Z72.0 Tobacco use
CPT/HCPCS: 73562-26-RT; 73562-RT; 99283-25

== ENCOUNTER 2023-03-24 15:18 | Emergency (ER) | payer SELFPAY ==
[2023-03-24] MEDS ORDERED: Lidocaine 1% 10 ML MDV INJECT ONE (16:13)
[2023-03-24 18:01] VITALS: BP 129/68; PULSE 82
== END 2023-03-24 17:53 | disposition home or self-care (01) ==
LOC: JD.ED 15:18
DX: S01.81XA Laceration without foreign body of other part of head, initial encounter (principal); S61.212A Laceration without foreign body of right middle finger without damage to nail, initial encounter; E78.00 Pure hypercholesterolemia, unspecified; I10 Essential (primary) hypertension; K21.9 Gastro-esophageal reflux disease without esophagitis; E11.9 Type 2 diabetes mellitus without complications; E66.9 Obesity, unspecified; Z68.34 Body mass index [BMI] 34.0-34.9, adult; Z98.890 Other specified postprocedural states; Z88.2 Allergy status to sulfonamides; Z88.5 Allergy status to narcotic agent; Z79.899 Other long term (current) drug therapy; Z79.84 Long term (current) use of oral hypoglycemic drugs; W18.30XA Fall on same level, unspecified, initial encounter; Y93.01 Activity, walking, marching and hiking
CPT/HCPCS: 12001; 70450; 70450-26; 70486; 70486-26; 99284

== ENCOUNTER 2024-01-16 05:54 | Emergency (ER) | payer OTHER ==
[2024-01-16] MEDS: Sodium Chloride 0.9% 1,000 ML IV ONE (06:43)
[2024-01-16] MEDS: Ondansetron 4 MG/2 ML SDV IVPUSH ONE (06:45)
[2024-01-16 06:53] LABS: BASOPHILS PERCENT AUTO 0.1 % (0.0-1.0); EOSINOPHILS PERCENT AUTO 0.2 % (0.0-6.0); HEMATOCRIT 41.8 % (37.0-47.0); HEMOGLOBIN 14.1 gm/dl (12.0-16.0); IMMATURE GRAN ABSOLUTE AUTO 0.04 K/mm3 (0.00-0.05); IMMATURE GRAN PERCENT AUTO 0.3 % (0.0-0.4); LYMPHOCYTES ABSOLUTE AUTO 1.1 K/mm3 (1.0-4.8); LYMPHOCYTES PERCENT AUTO 9.5 % (24.0-44.0); MEAN CORPUSCULAR HEMOGLOBIN 28.6 pg (28.0-32.0); MEAN CORPUSCULAR HGB CONC 33.7 g/dl (32.0-36.0); MEAN CORPUSCULAR VOLUME 84.8 fl (83.0-99.0); MEAN PLATELET VOLUME 10.7 fl (9.4-12.3); MONOCYTES ABSOLUTE AUTO 0.5 K/mm3 (0.0-0.8); MONOCYTES PERCENT AUTO 4.1 % (0.0-8.0); NEUTROPHILS ABSOLUTE AUTO 9.9 K/mm3 (1.8-7.7); NEUTROPHILS PERCENT AUTO 85.8 % (41.0-71.0); PLATELET COUNT,PLT 245 K/mm3 (150-400); RED BLOOD CELL COUNT 4.93 M/mm3 (4.10-5.30); WHITE BLOOD CELL COUNT,WBC 11.56 K/mm3 (3.9-11.3)
[2024-01-16 07:21] LABS: A/G RATIO 0.8 (1-2); ALBUMIN 3.3 g/dl (3.4-5.0); ANION GAP 17.3 (5-15); BILIRUBIN TOTAL 0.6 mg/dL (0.2-1.0); BUN/CREATININE RATIO 7.9 (14-18); CALCIUM 9.5 mg/dL (8.5-10.1); CREATININE 1.4 mg/dL (0.55-1.02); EST CRCL DRUG DOSING (CG) 37.97 mL/min; MAGNESIUM 1.5 mg/dL (1.8-2.4); POTASSIUM,K 4.3 mEq/L (3.5-5.1); PROTEIN TOTAL,TP 7.6 g/dl (6.4-8.2)
[2024-01-16] MEDS: Sodium Chloride 0.9% 10 ML Syringe FLUSH PRN (08:02)
[2024-01-16 08:36] LABS: APPEARANCE,URINE CLEAR (Clear); BILIRUBIN,URINE NEGATIVE (Negative); COLOR,URINE YELLOW (Yellow); GLUCOSE,URINE TRACE (Negative); KETONES,URINE NEGATIVE (Negative); LEUKOCYTE ESTERASE,URINE 1+ (Negative); NITRITE,URINE NEGATIVE (Negative); OCCULT BLOOD,URINE NEGATIVE (Negative); PROTEIN,URINE 1+ (Negative); UROBILINOGEN,URINE 0.2 (0.2-1.0)
[2024-01-16 09:04] LABS: BACTERIA,URINE FEW /hpf (FEW); EPITHELIAL CELLS,URINE 0-5 /hpf (0-5); MUCUS,URINE FEW /hpf (FEW); RBC,URINE 0-5 /hpf (0-5); WBC,URINE 0-5 /hpf (0-5)
[2024-01-16 19:49] VITALS: BP 138/74; PULSE 84
== END 2024-01-16 10:55 | disposition home or self-care (01) ==
LOC: JD.ED 05:54
DX: R11.10 Vomiting, unspecified (principal); I10 Essential (primary) hypertension; E78.00 Pure hypercholesterolemia, unspecified; E11.9 Type 2 diabetes mellitus without complications; E66.9 Obesity, unspecified; K21.9 Gastro-esophageal reflux disease without esophagitis; F17.210 Nicotine dependence, cigarettes, uncomplicated; Z88.2 Allergy status to sulfonamides; Z88.5 Allergy status to narcotic agent; Z79.899 Other long term (current) drug therapy; Z79.84 Long term (current) use of oral hypoglycemic drugs; Z90.49 Acquired absence of other specified parts of digestive tract; Z68.33 Body mass index [BMI] 33.0-33.9, adult
CPT/HCPCS: 36415; 80053; 81001; 81003; 83735; 85025; 87086; 96361; 96374; 99284; J2405; J3490; J7030

== ENCOUNTER 2024-01-23 13:00 | Emergency (ER) | payer OTHER ==
[2024-01-23 13:47] LABS: BASOPHILS PERCENT AUTO 0.4 % (0.0-1.0); EOSINOPHILS ABSOLUTE AUTO 0.1 K/mm3 (0.0-0.4); EOSINOPHILS PERCENT AUTO 1.4 % (0.0-6.0); HEMATOCRIT 37.4 % (37.0-47.0); HEMOGLOBIN 12.3 gm/dl (12.0-16.0); IMMATURE GRAN ABSOLUTE AUTO 0.02 K/mm3 (0.00-0.05); IMMATURE GRAN PERCENT AUTO 0.4 % (0.0-0.4); LYMPHOCYTES ABSOLUTE AUTO 1.3 K/mm3 (1.0-4.8); LYMPHOCYTES PERCENT AUTO 22.6 % (24.0-44.0); MEAN CORPUSCULAR HGB CONC 32.9 g/dl (32.0-36.0); MEAN PLATELET VOLUME 11.3 fl (9.4-12.3); MONOCYTES ABSOLUTE AUTO 0.4 K/mm3 (0.0-0.8); MONOCYTES PERCENT AUTO 6.7 % (0.0-8.0); NEUTROPHILS ABSOLUTE AUTO 3.9 K/mm3 (1.8-7.7); NEUTROPHILS PERCENT AUTO 68.5 % (41.0-71.0); PLATELET COUNT,PLT 181 K/mm3 (150-400); WHITE BLOOD CELL COUNT,WBC 5.71 K/mm3 (3.9-11.3)
[2024-01-23 14:07] LABS: BASE EXCESS VENOUS 2.3 (-4.0-2.0); BICARBONATE,VENOUS 26.4 meq/L (22-26); O2 SATURATION VENOUS 37.7; PH,VENOUS 7.43 (7.30-7.40)
[2024-01-23] MEDS: cefTRIAXone 1 GM in Sodium Chloride 0.9% 100 ML IV ONE (14:07)
[2024-01-23] MEDS: Sodium Chloride 0.9% 1,000 ML IV ONE (14:07)
[2024-01-23] MEDS: Metoclopramide 10 MG/2 ML SDV IVPUSH ONE (14:08)
[2024-01-23] MEDS: Morphine 4 MG/ML Syringe IVPUSH ONE (14:08)
[2024-01-23 14:09] LABS: A/G RATIO 0.6 (1-2); ALBUMIN 2.8 g/dl (3.4-5.0); ANION GAP 16.4 (5-15); BILIRUBIN TOTAL 0.5 mg/dL (0.2-1.0); CALCIUM 9.5 mg/dL (8.5-10.1); EST CRCL DRUG DOSING (CG) 55.31 mL/min; MAGNESIUM 1.2 mg/dL (1.8-2.4); PHOSPHORUS 3.3 mg/dL (2.6-4.7); POTASSIUM,K 3.4 mEq/L (3.5-5.1); PROTEIN TOTAL,TP 7.4 g/dl (6.4-8.2)
[2024-01-23 14:10] LABS: INR 1.03
[2024-01-23] MEDS: Magnesium Sulfate/Water 2 GM in Premix Bag 1 BAG IV ONE (14:59)
[2024-01-23] MEDS: Insulin Regular, Human 100 Units/ML 3 ML Vial IV ONE (15:00)
[2024-01-23 16:32] LABS: APPEARANCE,URINE CLEAR (Clear); BILIRUBIN,URINE NEGATIVE (Negative); COLOR,URINE YELLOW (Yellow); GLUCOSE,URINE NEGATIVE (Negative); KETONES,URINE NEGATIVE (Negative); LEUKOCYTE ESTERASE,URINE NEGATIVE (Negative); NITRITE,URINE NEGATIVE (Negative); OCCULT BLOOD,URINE NEGATIVE (Negative); PROTEIN,URINE NEGATIVE (Negative); UROBILINOGEN,URINE 0.2 (0.2-1.0)
[2024-01-23] MEDS: Magnesium Oxide 400 MG Tab PO ONE (18:37)
[2024-01-23 19:20] VITALS: BP 161/73; PULSE 86
== END 2024-01-23 19:00 | disposition home or self-care (01) ==
LOC: JD.ED 13:00
DX: K52.9 Noninfective gastroenteritis and colitis, unspecified (principal); E83.42 Hypomagnesemia; I10 Essential (primary) hypertension; E78.00 Pure hypercholesterolemia, unspecified; K21.9 Gastro-esophageal reflux disease without esophagitis; E11.9 Type 2 diabetes mellitus without complications; E66.9 Obesity, unspecified; Z68.32 Body mass index [BMI] 32.0-32.9, adult; Z88.2 Allergy status to sulfonamides; Z88.5 Allergy status to narcotic agent; Z79.899 Other long term (current) drug therapy; Z79.84 Long term (current) use of oral hypoglycemic drugs; Z90.49 Acquired absence of other specified parts of digestive tract
CPT/HCPCS: 36415; 74176; 74176-26; 80053; 81003; 82803; 82947; 83605; 83690; 83735; 84100; 85025; 85610; 96365; 96366; 96367; 96375; 99284; 99284-25; A9270-GY; J0696; J1815-GY; J2270; J2765; J3475; J3490; J7030

== ENCOUNTER 2024-10-10 12:33 | Emergency (ER) | payer MEDICAID, OTHER ==
[2024-10-10] MEDS ORDERED: Sodium Chloride 0.9% 10 ML Syringe FLUSH PRN (13:14)
[2024-10-10] MEDS ORDERED: Sodium Chloride 0.9% 100 ML IV SCH (13:30)
[2024-10-10] MEDS: Sodium Chloride 0.9% 10 ML Syringe FLUSH ONE (13:58)
[2024-10-10] MEDS: Iopamidol 755 Mg/ML 100 ML Bottle IVPUSH ONE (13:58)
[2024-10-10] MEDS: Sodium Chloride 0.9% 100 ML IV SCH (13:58)
[2024-10-10 14:25] LABS: BASOPHILS PERCENT AUTO 0.2 % (0.0-1.0); EOSINOPHILS ABSOLUTE AUTO 0.1 K/mm3 (0.0-0.4); EOSINOPHILS PERCENT AUTO 0.8 % (0.0-6.0); HEMATOCRIT 35.8 % (37.0-47.0); HEMOGLOBIN 11.6 gm/dl (12.0-16.0); IMMATURE GRAN ABSOLUTE AUTO 0.05 K/mm3 (0.00-0.05); IMMATURE GRAN PERCENT AUTO 0.4 % (0.0-0.4); LYMPHOCYTES ABSOLUTE AUTO 1.5 K/mm3 (1.0-4.8); LYMPHOCYTES PERCENT AUTO 11.6 % (24.0-44.0); MEAN CORPUSCULAR HEMOGLOBIN 28.7 pg (28.0-32.0); MEAN CORPUSCULAR HGB CONC 32.4 g/dl (32.0-36.0); MEAN CORPUSCULAR VOLUME 88.6 fl (83.0-99.0); MEAN PLATELET VOLUME 11.8 fl (9.4-12.3); MONOCYTES ABSOLUTE AUTO 0.6 K/mm3 (0.0-0.8); MONOCYTES PERCENT AUTO 4.8 % (0.0-8.0); NEUTROPHILS ABSOLUTE AUTO 10.4 K/mm3 (1.8-7.7); NEUTROPHILS PERCENT AUTO 82.2 % (41.0-71.0); PLATELET COUNT,PLT 167 K/mm3 (150-400); RED BLOOD CELL COUNT 4.04 M/mm3 (4.10-5.30); WHITE BLOOD CELL COUNT,WBC 12.63 K/mm3 (3.9-11.3)
[2024-10-10 14:32] LABS: PROTHROMBIN TIME 10.6 SECONDS (9.7-12.0)
[2024-10-10 14:33] LABS: PTT,PARTIAL THROMBOPLSTIN TIME 24.4 SECONDS (21.7-31.4)
[2024-10-10 14:35] LABS: A/G RATIO 0.8 (1-2); ANION GAP 13.9 (5-15); BILIRUBIN TOTAL 0.2 mg/dL (0.2-1.0); BUN/CREATININE RATIO 17.5 (14-18); CALCIUM 8.7 mg/dL (8.5-10.1); CREATININE 1.2 mg/dL (0.55-1.02); EST CRCL DRUG DOSING (CG) 43.74 mL/min; POTASSIUM,K 3.9 mEq/L (3.5-5.1); PROTEIN TOTAL,TP 6.6 g/dl (6.4-8.2)
[2024-10-10 15:30] VITALS: BP 145/97; PULSE 90
[2024-10-10] MEDS: Aspirin 81 MG Tab.Chew PO ONE (17:37)
[2024-10-10] MEDS: Clopidogrel 75 MG Tab PO ONE (17:38)
== END 2024-10-10 18:38 ==
LOC: JD.ED 12:33
DX: R53.1 Weakness (principal); I10 Essential (primary) hypertension; E78.00 Pure hypercholesterolemia, unspecified; K21.9 Gastro-esophageal reflux disease without esophagitis; E11.9 Type 2 diabetes mellitus without complications; E66.9 Obesity, unspecified; Z79.899 Other long term (current) drug therapy; Z79.84 Long term (current) use of oral hypoglycemic drugs; Z88.2 Allergy status to sulfonamides; Z88.5 Allergy status to narcotic agent; Z68.35 Body mass index [BMI] 35.0-35.9, adult
CPT/HCPCS: 36415; 70450; 70496; 70498; 72131; 80053; 84484; 85025; 85610; 85730; 93005; 99285; A9270; Q9967